=== PATIENT | female | born 1985 | race African-American/Black ===

== ENCOUNTER 2016-09-03 22:16 | Emergency (ER) | payer OTHER ==
[~2016-09-03] VITALS: Ht 175.3 cm; Wt 100.0 kg
[2016-09-03] MEDS ORDERED: 0.9% SODIUM CHLORIDE 5 ML NEB SOLUTION NEB ONE (22:54)
[2016-09-03] MEDS ORDERED: DEXAMETHASONE SOD PHOS 4 MG/ML 5 ML VIAL IM ONE (23:00)
[2016-09-03] MEDS ORDERED: ALBUTEROL SULFATE HFA 90 MCG/PUFF 8 GM INHALER IH ONE (23:00)
[2016-09-03] MEDS ORDERED: ALBUTEROL SULFATE 2.5 MG/0.5 ML NEB SOLUTION NEB ONE (23:00)
[2016-09-03 23:36] VITALS: BP 132/81
== END 2016-09-03 23:56 | disposition home or self-care (01) ==
LOC: EMS 22:17
DX: J98.01 Acute bronchospasm (principal); J06.9 Acute upper respiratory infection, unspecified; J45.909 Unspecified asthma, uncomplicated; Z88.6 Allergy status to analgesic agent
CPT/HCPCS: 81025; 94644; 96372; 99285; J1100; J3535

== ENCOUNTER 2017-03-09 21:08 | Emergency (ER) | payer OTHER ==
[~2017-03-09] VITALS: Ht 177.8 cm; Wt 97.7 kg
[2017-03-09] MEDS ORDERED: BECL8.7A6 IH (21:22)
[2017-03-09] MEDS ORDERED: AUD NEB (21:22)
[2017-03-09] MEDS ORDERED: ADV100 IH (21:26)
[2017-03-09] MEDS ORDERED: ALBUTEROL SULFATE HFA 90 MCG/PUFF 8 GM INHALER IH ONE (21:30)
[2017-03-09 21:58] VITALS: BP 142/89
== END 2017-03-09 22:07 | disposition home or self-care (01) ==
LOC: EMS 21:09
DX: J45.901 Unspecified asthma with (acute) exacerbation (principal)
CPT/HCPCS: 94640; 99283; J3535

== ENCOUNTER 2017-04-11 15:49 | Emergency (ER) | payer OTHER ==
[~2017-04-11] VITALS: Ht 177.8 cm; Wt 63.6 kg
[~2017-04-11 15:49] MED LIST: AUD NEB
[2017-04-11] MEDS ORDERED: LIDOCAINE HCL 1% 10 ML VIAL INJ ONE (16:30)
[2017-04-11] MEDS ORDERED: PERTUSS(ACELL),DIPH,TET VAC/PF 0.5 ML VIAL IM ONE (16:30)
[2017-04-11] MEDS ORDERED: BACITRACIN 0.9 GM PACKET OINTMENT TP ONE (16:30)
[2017-04-11] MEDS ORDERED: LIDOCAINE HCL 2%/EPI 1:200,000/PF 10 ML VIAL INJ ONE (17:00)
[2017-04-11 17:32] VITALS: BP 118/52
== END 2017-04-11 17:54 | disposition short-term general hospital (02) ==
LOC: EMS 15:51
DX: S61.412A Laceration without foreign body of left hand, initial encounter (principal); S81.012A Laceration without foreign body, left knee, initial encounter; J45.909 Unspecified asthma, uncomplicated; Z88.6 Allergy status to analgesic agent; W25.XXXA Contact with sharp glass, initial encounter; Y93.89 Activity, other specified; Y92.89 Other specified places as the place of occurrence of the external cause; Y99.8 Other external cause status
CPT/HCPCS: 73130; 90471; 90715; 99285; J3490

== ENCOUNTER 2017-05-05 10:19 | Emergency (ER) | payer OTHER ==
[~2017-05-05] VITALS: Ht 177.8 cm; Wt 95.4 kg
[2017-05-05 10:35] VITALS: BP 133/79
[2017-05-05] MEDS ORDERED: HYDROCODONE/ACETAMINOPHEN 5-325 MG TABLET PO ONE (10:45)
== END 2017-05-05 11:02 | disposition home or self-care (01) ==
LOC: EMS 10:23
DX: S61.412D Laceration without foreign body of left hand, subsequent encounter (principal); J45.909 Unspecified asthma, uncomplicated; Z88.6 Allergy status to analgesic agent; X58.XXXD Exposure to other specified factors, subsequent encounter; Y92.89 Other specified places as the place of occurrence of the external cause; Y99.8 Other external cause status
CPT/HCPCS: 99283

== ENCOUNTER 2017-07-19 23:08 | Emergency (ER) | payer OTHER ==
[~2017-07-19] VITALS: Ht 175.3 cm; Wt 88.6 kg
[2017-07-19] MEDS ORDERED: RISP2 PO (23:21)
[2017-07-20] MEDS ORDERED: SODIUM CHLORIDE 0.9% 1,000 ML IV ONE (00:15)
[2017-07-20 00:47] LABS: BASOPHILS # (AUTO) 0.09 K/uL (0.00-0.20); BASOPHILS % (AUTO) 1.5 % (0.0-2.0); EOSINOPHILS # (AUTO) 0.22 K/uL (0.00-0.70); EOSINOPHILS % (AUTO) 3.71 % (1.0-6.0); HEMATOCRIT 34.1 % (36-46); HEMOGLOBIN 10.4 g/dL (12.0-16.0); LYMPHOCYTES # (AUTO) 1.4 K/uL (1.0-4.8); LYMPHOCYTES % (AUTO) 23.6 % (22.0-44.0); MEAN CORPUSCULAR HEMOGLOBIN 21.4 pg (26.0-34.0); MEAN CORPUSCULAR HGB CONC 30.6 G/dL (31.0-37.0); MEAN CORPUSCULAR VOLUME 70 fL (80-100); MONOCYTES # (AUTO) 0.4 K/uL (0.1-1.0); MONOCYTES % (AUTO) 7.4 % (2.0-9.0); NEUTROPHILS # (AUTO) 3.9 K/uL (1.8-7.7); NEUTROPHILS % (AUTO) 63.8 % (40.0-70.0); PLATELET COUNT (AUTO) 326 K/uL (150-450); RED BLOOD CELL COUNT(AUTO) 4.87 MIL/uL (4.00-5.20); RED CELL DISTRIBUTION WIDTH 19.2 % (11.5-14.5)
[2017-07-20 01:01] LABS: ANION GAP 10 mmol/L (8-16); CALCIUM, TOTAL 9.6 mg/dL (8.8-10.5); CARBON DIOXIDE 26 mmol/L (22-29); CHLORIDE 101 mmol/L (98-107); CREATININE 0.62 mg/dL (0.60-1.30); GLOMERULAR FILTR. RATE CALC > 60 mL/min (>60); POTASSIUM 5.4 mmol/L (3.5-5.1); SODIUM SERUM 137 mmol/L (136-145); UREA NITROGEN, BLOOD 7 mg/dL (7-18)
[2017-07-20 01:17] LABS: ALANINE AMINOTRANSFERASE 17 U/L (12-78); ALBUMIN 4.3 g/dL (3.4-5.0); ASPARTATE AMINOTRANSFERASE 35 U/L (15-37); BILIRUBIN,TOTAL 0.6 mg/dL (0.1-1.0); THYROID STIMULATING HORMONE 1.93 uIU/mL (0.36-3.74); TOTAL PROTEIN, SERUM 8.5 g/dL (6.4-8.2)
[2017-07-20 01:31] LABS: RBC MORPHOLOGY COMMENT ABNORMAL RBC MORPH
[2017-07-20 03:01] VITALS: BP 122/81
== END 2017-07-20 03:51 | disposition home or self-care (01) ==
LOC: EMS 23:09
DX: R00.2 Palpitations (principal); R35.8 Other polyuria; J45.909 Unspecified asthma, uncomplicated; E11.9 Type 2 diabetes mellitus without complications; Z88.6 Allergy status to analgesic agent
CPT/HCPCS: 36415; 71010; 80053; 80307; 84439; 84443; 84484; 84703; 85025; 93005; 96360; 96361; 99285; J7030

== ENCOUNTER 2017-10-15 09:36 | Emergency (ER) | payer OTHER ==
[~2017-10-15] VITALS: Ht 172.7 cm; Wt 84.1 kg
[~2017-10-15 09:36] MED LIST changes: +RISP2 PO
[2017-10-15 09:58] LABS: GLUCOSE,POINT OF CARE 104 MG/DL (70-110)
[2017-10-15] MEDS ORDERED: LORazepam 2 MG/ML VIAL IVP ONE ×2 (10:15→12:45)
[2017-10-15 10:58] LABS: B-TYPE NATRIURETIC PEPTIDE 12 pg/mL (0-100); BASOPHILS % (AUTO) 0.6 % (0.0-2.0); EOSINOPHILS % (AUTO) 2.1 % (1.0-6.0); HEMATOCRIT 33.5 % (36-46); HEMOGLOBIN 10.4 g/dL (12.0-16.0); LYMPHOCYTES # (AUTO) 1.5 K/uL (1.0-4.8); LYMPHOCYTES % (AUTO) 16.8 % (22.0-44.0); MEAN CORPUSCULAR HEMOGLOBIN 21.8 pg (26.0-34.0); MEAN CORPUSCULAR HGB CONC 31.1 G/dL (31.0-37.0); MEAN CORPUSCULAR VOLUME 70 fL (80-100); MONOCYTES # (AUTO) 0.6 K/uL (0.1-1.0); MONOCYTES % (AUTO) 6.3 % (2.0-9.0); NEUTROPHILS # (AUTO) 6.6 K/uL (1.8-7.7); NEUTROPHILS % (AUTO) 74.2 % (40.0-70.0); PLATELET COUNT (AUTO) 374 K/uL (150-450); RED BLOOD CELL COUNT(AUTO) 4.78 MIL/uL (4.00-5.20); RED CELL DISTRIBUTION WIDTH 18.8 % (11.5-14.5)
[2017-10-15 11:15] LABS: ALANINE AMINOTRANSFERASE 21 U/L (12-78); ALBUMIN 4.5 g/dL (3.4-5.0); ALKALINE PHOSPHATASE 97 U/L (46-116); ANION GAP 13 mmol/L (8-16); ASPARTATE AMINOTRANSFERASE 25 U/L (15-37); BILIRUBIN,TOTAL 0.8 mg/dL (0.1-1.0); CALCIUM, TOTAL 9.4 mg/dL (8.8-10.5); CARBON DIOXIDE 24 mmol/L (22-29); CHLORIDE 101 mmol/L (98-107); CREATINE KINASE MB 3.2 ng/mL (0-5); CREATINE KINASE, TOTAL 448 U/L (26-192); CREATININE 0.82 mg/dL (0.60-1.30); GLOMERULAR FILTR. RATE CALC > 60 mL/min (>60); GLUCOSE,RANDOM 114 mg/dL (70-110); SODIUM SERUM 138 mmol/L (136-145); TOTAL PROTEIN, SERUM 8.9 g/dL (6.4-8.2); UREA NITROGEN, BLOOD 10 mg/dL (7-18)
[2017-10-15] MEDS ORDERED: POTASSIUM CHLORIDE 20 MEQ ER TABLET PO ONE (11:30)
[2017-10-15 12:43] VITALS: BP 140/78
== END 2017-10-15 13:19 | disposition home or self-care (01) ==
LOC: EMS 09:37
DX: F19.129 Other psychoactive substance abuse with intoxication, unspecified (principal); F15.90 Other stimulant use, unspecified, uncomplicated; E87.6 Hypokalemia; D64.9 Anemia, unspecified; J45.909 Unspecified asthma, uncomplicated; E11.9 Type 2 diabetes mellitus without complications; F32.9 Major depressive disorder, single episode, unspecified; Z88.5 Allergy status to narcotic agent; Z79.899 Other long term (current) drug therapy
CPT/HCPCS: 36415; 71045; 80053; 82550; 82553; 82962; 83880; 84484; 85025; 93005; 96374; 96376; 99285; G0480; J2060

== ENCOUNTER 2019-03-15 12:22 | Emergency (ER) | payer OTHER ==
[~2019-03-15] VITALS: Ht 172.7 cm; Wt 81.8 kg
[2019-03-15 12:25] VITALS: BP 121/75
== END 2019-03-15 12:40 | disposition left against medical advice (07) ==
LOC: EMS 12:22
DX: R06.02 Shortness of breath (principal); J45.909 Unspecified asthma, uncomplicated; F32.9 Major depressive disorder, single episode, unspecified; E11.9 Type 2 diabetes mellitus without complications; F17.210 Nicotine dependence, cigarettes, uncomplicated; Z53.21 Procedure and treatment not carried out due to patient leaving prior to being seen by health care provider

== ENCOUNTER 2019-04-19 02:46 | Emergency (ER) | payer OTHER | END 2019-04-19 03:06 | disposition left against medical advice (07) | LOC: EMS 02:48 | DX: J45.901 Unspecified asthma with (acute) exacerbation (principal); F32.9 Major depressive disorder, single episode, unspecified; E11.9 Type 2 diabetes mellitus without complications; Z88.6 Allergy status to analgesic agent ==

== ENCOUNTER 2019-07-05 09:26 | Emergency (ER) | payer OTHER ==
[~2019-07-05] VITALS: Ht 175.3 cm; Wt 85.8 kg
[2019-07-05] MEDS ORDERED: ARIP2 PO (09:47)
[2019-07-05 10:15] LABS: BASOPHILS % (AUTO) 1.1 % (0.0-2.0); EOSINOPHILS % (AUTO) 7.9 % (1.0-6.0); HEMATOCRIT 35.3 % (36-46); HEMOGLOBIN 10.9 g/dL (12.0-16.0); LYMPHOCYTES # (AUTO) 1.9 K/uL (1.0-4.8); LYMPHOCYTES % (AUTO) 25.3 % (22.0-44.0); MEAN CORPUSCULAR HEMOGLOBIN 23.4 pg (26.0-34.0); MEAN CORPUSCULAR HGB CONC 30.8 G/dL (31.0-37.0); MEAN CORPUSCULAR VOLUME 76 fL (80-100); MONOCYTES # (AUTO) 0.5 K/uL (0.1-1.0); MONOCYTES % (AUTO) 6.8 % (2.0-9.0); NEUTROPHILS # (AUTO) 4.5 K/uL (1.8-7.7); NEUTROPHILS % (AUTO) 58.9 % (40.0-70.0); PLATELET COUNT (AUTO) 453 K/uL (150-450); RED BLOOD CELL COUNT(AUTO) 4.64 MIL/uL (4.00-5.20); RED CELL DISTRIBUTION WIDTH 15.5 % (11.5-14.5)
[2019-07-05] MEDS ORDERED: MAGNESIUM SULFATE 2 GM/WATER 50 ML IV ONE (10:15)
[2019-07-05] MEDS ORDERED: MethylPREDNISolone SOD SUCC 125 MG/2 ML VIAL IVP ONE (10:15)
[2019-07-05] MEDS ORDERED: SODIUM CHLORIDE 0.9% 1,000 ML IV ONE (10:15)
[2019-07-05] MEDS ORDERED: AMPICILLIN SODIUM/SULBACTAM NA 3 GM in SODIUM CHLORIDE 0.9% 100 ML IV ONE (10:30)
[2019-07-05] MEDS ORDERED: SODIUM CHLORIDE 0.9% 100 ML ONE (10:30)
[2019-07-05] MEDS ORDERED: IOVERSOL 350 MG/ML 100 ML VIAL ONE (10:30)
[2019-07-05 10:42] LABS: ABG A-A DIFF O2 38.4 mmHg (10-20.0); ABG CARBOXYHEMOGLOBIN 0.2 % (0.0-1.5); ABG HCO3 22.3 mmol/L (22.0-26.0); ABG METHEMOGLOBIN 0.3 % (0.0-1.5); ABG OXYGEN CONTENT 14.3 mL/dL (15.0-23.0); ABG OXYGEN SATURATION 93.4 % (95.0-98.0); ABG OXYHEMOGLOBIN 92.9 % (94.0-100.0); ABG PCO2 34 mmHg (35-45); ABG PH 7.416 (7.350-7.450); ABG TOTAL HEMOGLOBIN 10.9 G/dL (12.0-18.0); O2 DEVICE,BLOOD GAS ROOM AIR (ROOM AIR); PO2, ARTERIAL BG 70.5 mmHg (92.0-100.0); SITE, BLOOD GAS RT RADIAL; SOURCE, BLOOD GAS ARTERIAL
[2019-07-05 11:01] LABS: ALANINE AMINOTRANSFERASE 15 U/L (12-78); ALBUMIN 3.5 g/dL (3.4-5.0); ALKALINE PHOSPHATASE 79 U/L (46-116); ANION GAP 9 mmol/L (8-16); ASPARTATE AMINOTRANSFERASE 16 U/L (15-37); BILIRUBIN,TOTAL 0.3 mg/dL (0.1-1.0); CALCIUM, TOTAL 8.3 mg/dL (8.8-10.5); CARBON DIOXIDE 28 mmol/L (22-29); CHLORIDE 104 mmol/L (98-107); CREATININE 0.86 mg/dL (0.60-1.30); GLOMERULAR FILTR. RATE CALC > 60 mL/min (>60); GLUCOSE,RANDOM 148 mg/dL (70-110); HCG,QUANTITATIVE 1 mIU/mL (0-6); POTASSIUM 3.7 mmol/L (3.5-5.1); SODIUM SERUM 141 mmol/L (136-145); TOTAL PROTEIN, SERUM 7.6 g/dL (6.4-8.2)
[2019-07-05 11:13] LABS: UREA NITROGEN, BLOOD 7 mg/dL (7-18)
[2019-07-05] MEDS ORDERED: IPRATROPIUM BROMIDE 0.5 MG/2.5 ML NEB SOLUTION NEB ONE (11:15)
[2019-07-05] MEDS ORDERED: ALBUTEROL SULFATE 2.5 MG/0.5 ML NEB SOLUTION NEB ONE (11:15)
[2019-07-05 11:39] LABS: INFLUENZA TYPE A NEGATIVE FOR TYPE A (NEGATIVE); INFLUENZA TYPE B NEGATIVE FOR TYPE B (NEGATIVE)
[2019-07-05] MEDS ORDERED: ALBUTEROL SULFATE HFA 90 MCG/PUFF 8 GM INHALER IH ONE (13:45)
[2019-07-05 14:30] VITALS: BP 118/95
== END 2019-07-05 14:43 | disposition home or self-care (01) ==
LOC: EMS 09:29
DX: J45.901 Unspecified asthma with (acute) exacerbation (principal); K04.7 Periapical abscess without sinus; E11.9 Type 2 diabetes mellitus without complications; F32.9 Major depressive disorder, single episode, unspecified; Z88.6 Allergy status to analgesic agent; Z79.899 Other long term (current) drug therapy
CPT/HCPCS: 36415; 36600; 70487; 71045; 80053; 82805; 84702; 85025; 87804; 94640; 96365; 96366; 96367; 96375; 99284; J0295; J2930; J3475; J7030; J7050; Q9967; 94060; J3535

== ENCOUNTER 2019-10-21 19:42 | Emergency (ER) | payer OTHER ==
[~2019-10-21 19:42] MED LIST changes: +ARIP2 PO; -RISP2 PO
== END 2019-10-21 20:00 | disposition left against medical advice (07) ==
LOC: EMS 19:43
DX: R06.02 Shortness of breath (principal); Z53.21 Procedure and treatment not carried out due to patient leaving prior to being seen by health care provider

== ENCOUNTER 2019-10-22 10:22 | Emergency (ER) | payer OTHER ==
[~2019-10-22] VITALS: Ht 175.3 cm; Wt 90.9 kg
[2019-10-22 11:08] VITALS: BP 8/67
== END 2019-10-22 10:58 | disposition home or self-care (01) ==
LOC: EMS 10:24
DX: J45.901 Unspecified asthma with (acute) exacerbation (principal); E11.9 Type 2 diabetes mellitus without complications; Z88.6 Allergy status to analgesic agent; Z79.899 Other long term (current) drug therapy

== ENCOUNTER 2019-10-30 12:38 | Emergency (ER) | payer OTHER ==
[~2019-10-30] VITALS: Ht 172.7 cm; Wt 86.4 kg
[2019-10-30 13:25] VITALS: BP 124/76
[2019-10-30 13:50] LABS: INFLUENZA TYPE A NEGATIVE FOR TYPE A (NEGATIVE); INFLUENZA TYPE B NEGATIVE FOR TYPE B (NEGATIVE)
== END 2019-10-30 13:37 | disposition left against medical advice (07) ==
LOC: EMS 12:38
DX: R06.02 Shortness of breath (principal); Z53.21 Procedure and treatment not carried out due to patient leaving prior to being seen by health care provider
CPT/HCPCS: 87804

== ENCOUNTER 2019-10-31 17:05 | Emergency (ER) | payer OTHER ==
[~2019-10-31] VITALS: Ht 172.7 cm; Wt 86.4 kg
[2019-10-31 17:17] VITALS: BP 124/85
== END 2019-10-31 18:13 | disposition home or self-care (01) ==
LOC: EMS 17:05
DX: J45.901 Unspecified asthma with (acute) exacerbation (principal); F32.9 Major depressive disorder, single episode, unspecified; E11.9 Type 2 diabetes mellitus without complications; Z88.6 Allergy status to analgesic agent

== ENCOUNTER 2019-11-17 21:51 | Emergency (ER) | payer OTHER ==
[~2019-11-17] VITALS: Ht 167.6 cm; Wt 72.7 kg
[2019-11-17 22:56] LABS: BASOPHILS % (AUTO) 1.2 % (0.0-2.0); EOSINOPHILS % (AUTO) 10.2 % (1.0-6.0); HEMATOCRIT 35.2 % (36-46); HEMOGLOBIN 10.8 g/dL (12.0-16.0); LYMPHOCYTES % (AUTO) 30.6 % (22.0-44.0); MEAN CORPUSCULAR HEMOGLOBIN 22.8 pg (26.0-34.0); MEAN CORPUSCULAR HGB CONC 30.7 G/dL (31.0-37.0); MEAN CORPUSCULAR VOLUME 74 fL (80-100); MONOCYTES # (AUTO) 0.5 K/uL (0.1-1.0); MONOCYTES % (AUTO) 7.2 % (2.0-9.0); NEUTROPHILS # (AUTO) 3.3 K/uL (1.8-7.7); NEUTROPHILS % (AUTO) 50.8 % (40.0-70.0); PLATELET COUNT (AUTO) 439 K/uL (150-450); RED BLOOD CELL COUNT(AUTO) 4.74 MIL/uL (4.00-5.20); RED CELL DISTRIBUTION WIDTH 17.7 % (11.5-14.5)
[2019-11-17] MEDS ORDERED: IPRATROPIUM BROMIDE 0.5 MG/2.5 ML NEB SOLUTION NEB ONE (23:00)
[2019-11-17] MEDS ORDERED: ALBUTEROL SULFATE 5 MG/ML 20 ML NEB SOLN [BULK] NEB ONE (23:00)
[2019-11-17] MEDS ORDERED: PredniSONE 20 MG TABLET PO ONE (23:00)
[2019-11-17 23:30] LABS: ALANINE AMINOTRANSFERASE 28 U/L (12-78); ALBUMIN 4.4 g/dL (3.4-5.0); ALKALINE PHOSPHATASE 82 U/L (46-116); ANION GAP 8 mmol/L (8-16); ASPARTATE AMINOTRANSFERASE 37 U/L (15-37); BILIRUBIN,TOTAL 0.4 mg/dL (0.1-1.0); CARBON DIOXIDE 28 mmol/L (22-29); CHLORIDE 103 mmol/L (98-107); CREATININE 0.85 mg/dL (0.60-1.30); GLOMERULAR FILTR. RATE CALC > 60 mL/min (>60); GLUCOSE,RANDOM 114 mg/dL (70-110); HCG,QUANTITATIVE < 1 mIU/mL (0-6); SODIUM SERUM 139 mmol/L (136-145); TOTAL PROTEIN, SERUM 8.6 g/dL (6.4-8.2); UREA NITROGEN, BLOOD 6 mg/dL (7-18)
[2019-11-17] MEDS ORDERED: 0.9% SODIUM CHLORIDE 5 ML NEB SOLUTION NEB ONE (23:49)
[2019-11-18 00:48] VITALS: BP 129/93
== END 2019-11-18 00:54 | disposition home or self-care (01) ==
LOC: EMS 21:53
DX: J45.901 Unspecified asthma with (acute) exacerbation (principal); D64.9 Anemia, unspecified; E11.9 Type 2 diabetes mellitus without complications; F32.9 Major depressive disorder, single episode, unspecified; Z88.6 Allergy status to analgesic agent
CPT/HCPCS: 36415; 71045; 80053; 84702; 85025; 94640; 99285; J7512

== ENCOUNTER 2020-01-06 14:27 | Emergency (ER) | payer OTHER ==
[~2020-01-06] VITALS: Ht 172.7 cm; Wt 90.9 kg
[2020-01-06] MEDS ORDERED: SODIUM CHLORIDE 0.9% 1,000 ML IV ONE (15:00)
[2020-01-06] MEDS ORDERED: ALBUTEROL SULFATE HFA 90 MCG/PUFF 8 GM INHALER IH ONE (15:00)
[2020-01-06 15:25] LABS: HEMATOCRIT 34.7 % (36-46); HEMOGLOBIN 10.6 g/dL (12.0-16.0); MEAN CORPUSCULAR HEMOGLOBIN 22.8 pg (26.0-34.0); MEAN CORPUSCULAR HGB CONC 30.6 G/dL (31.0-37.0); MEAN CORPUSCULAR VOLUME 75 fL (80-100); PLATELET COUNT (AUTO) 396 K/uL (150-450); RED BLOOD CELL COUNT(AUTO) 4.65 MIL/uL (4.00-5.20); RED CELL DISTRIBUTION WIDTH 17.3 % (11.5-14.5)
[2020-01-06 15:38] LABS: ANION GAP 12 mmol/L (8-16); CARBON DIOXIDE 24 mmol/L (22-29); CHLORIDE 105 mmol/L (98-107); CREATININE 0.78 mg/dL (0.60-1.30); GLOMERULAR FILTR. RATE CALC > 60 mL/min (>60); GLUCOSE,RANDOM 100 mg/dL (70-110); SODIUM SERUM 141 mmol/L (136-145); UREA NITROGEN, BLOOD 9 mg/dL (7-18)
[2020-01-06 15:44] LABS: D-DIMER 0.74 mg/L FEU (0.00-0.50); PROTHROMBIN TIME 10.7 SEC (9.4-11.6)
[2020-01-06 16:00] LABS: B-TYPE NATRIURETIC PEPTIDE < 5 pg/mL (0-100)
[2020-01-06 16:03] LABS: ALANINE AMINOTRANSFERASE 23 U/L (12-78); ALBUMIN 4.1 g/dL (3.4-5.0); ALKALINE PHOSPHATASE 77 U/L (46-116); ASPARTATE AMINOTRANSFERASE 39 U/L (15-37); BILIRUBIN,TOTAL 0.5 mg/dL (0.1-1.0); FREE T4 (FREE THYROXINE) 0.96 ng/dL (0.76-1.46); HCG,QUANTITATIVE < 1 mIU/mL (0-6); THYROID STIMULATING HORMONE 2.17 uIU/mL (0.36-3.74); TOTAL PROTEIN, SERUM 8.3 g/dL (6.4-8.2)
[2020-01-06 16:09] LABS: CREATINE KINASE, TOTAL ONLY 1106 U/L (26-192)
[2020-01-06 16:11] LABS: APPEARANCE,URINE CLOUDY (CLEAR); BILIRUBIN,URINE NEGATIVE (NEGATIVE); GLUCOSE, URINE (UA) NEGATIVE (NEGATIVE); KETONES,URINE TRACE mg/dL (NEGATIVE); LEUKOCYTE ESTERASE ,URINE MODERATE (NEGATIVE); NITRATE,URINE NEGATIVE (NEGATIVE); OCCULT BLOOD,URINE NEGATIVE (NEGATIVE); PROTEIN,URINE NEGATIVE (NEGATIVE); UROBILINOGEN,URINE 0.2 mg/dL (<=1.0)
[2020-01-06 16:18] LABS: AMPHET/METH SCREEN,URINE NEGATIVE (NEGATIVE); BARBITURATE SCREEN, URINE NEGATIVE (NEGATIVE); BENZODIAZEPINES SCREEN,URINE NEGATIVE (NEGATIVE); CANNABINOID SCREEN,URINE NEGATIVE (NEGATIVE); COCAINE SCREEN,URINE NEGATIVE (NEGATIVE); METHADONE SCREEN, URINE NEGATIVE (NEGATIVE); OPIATE SCREEN,URINE NEGATIVE (NEGATIVE)
[2020-01-06] MEDS ORDERED: IOVERSOL 350 MG/ML 100 ML VIAL ONE (16:19)
[2020-01-06] MEDS ORDERED: SODIUM CHLORIDE 0.9% 0 ML ONE (16:19)
[2020-01-06 16:22] LABS: PHENCYCLIDINE SCREEN,URINE NEGATIVE (NEGATIVE)
[2020-01-06 16:26] LABS: BAND NEUTROPHILS % (MANUAL) 0 % (0-5)
[2020-01-06 16:28] LABS: BASOPHILS % (MANUAL) 1 % (0-2); EOSINOPHILS % (MANUAL) 18 % (1-6); LYMPHOCYTES % (MANUAL) 22 % (22-44); MONOCYTES % (MANUAL) 5 % (2-9); PLATELET MORPHOLOGY COMMENT GIANT PLTS PRESENT; SEGMENTED NEUTROPHILS % 54 % (40-70)
[2020-01-06 16:43] LABS: BACTERIA,URINE Few /HPF (None Seen); RBC,URINE 0-2 /HPF (0-2); SQUAMOUS EPITHELIAL CELL,UR Many /LPF (None Seen)
[2020-01-06 17:22] VITALS: BP 136/108
== END 2020-01-06 17:50 | disposition left against medical advice (07) ==
LOC: EMS 14:30
DX: J45.909 Unspecified asthma, uncomplicated (principal); R79.89 Other specified abnormal findings of blood chemistry; F32.9 Major depressive disorder, single episode, unspecified; E11.9 Type 2 diabetes mellitus without complications; F19.90 Other psychoactive substance use, unspecified, uncomplicated; Z88.6 Allergy status to analgesic agent
CPT/HCPCS: 36415; 71045; 80053; 80307; 81001; 81025; 82550; 83880; 84439; 84443; 84484; 84702; 85025; 85379; 85610; 85730; 87086; 93005; 94640; 99285; G0480; J7030; J3535; J7050

== ENCOUNTER 2020-01-10 15:59 | Emergency (ER) | payer OTHER ==
[~2020-01-10] VITALS: Ht 172.7 cm; Wt 90.9 kg
[2020-01-10] MEDS ORDERED: ALBUTEROL SULFATE HFA 90 MCG/PUFF 8 GM INHALER IH ONE (17:15)
[2020-01-10 17:19] LABS: BASOPHILS % (AUTO) 0.1 % (0.0-2.0); EOSINOPHILS % (AUTO) 0 % (1.0-6.0); HEMATOCRIT 30.1 % (36-46); LYMPHOCYTES # (AUTO) 0.4 K/uL (1.0-4.8); LYMPHOCYTES % (AUTO) 6.2 % (22.0-44.0); MEAN CORPUSCULAR HEMOGLOBIN 22.7 pg (26.0-34.0); MEAN CORPUSCULAR HGB CONC 30.1 G/dL (31.0-37.0); MEAN CORPUSCULAR VOLUME 75 fL (80-100); MONOCYTES # (AUTO) 0.2 K/uL (0.1-1.0); MONOCYTES % (AUTO) 2.9 % (2.0-9.0); NEUTROPHILS # (AUTO) 5.8 K/uL (1.8-7.7); PLATELET COUNT (AUTO) 324 K/uL (150-450); RED BLOOD CELL COUNT(AUTO) 3.99 MIL/uL (4.00-5.20); RED CELL DISTRIBUTION WIDTH 16.9 % (11.5-14.5)
[2020-01-10 17:26] LABS: NEUTROPHILS % (AUTO) 90.8 % (40.0-70.0)
[2020-01-10 17:35] LABS: ANION GAP 14 mmol/L (8-16); CALCIUM, TOTAL 8.7 mg/dL (8.8-10.5); CARBON DIOXIDE 21 mmol/L (22-29); CHLORIDE 106 mmol/L (98-107); CREATININE 0.95 mg/dL (0.60-1.30); GLOMERULAR FILTR. RATE CALC > 60 mL/min (>60); GLUCOSE,RANDOM 166 mg/dL (70-110); POTASSIUM 3.8 mmol/L (3.5-5.1); SODIUM SERUM 141 mmol/L (136-145); UREA NITROGEN, BLOOD 8 mg/dL (7-18)
[2020-01-10 17:41] LABS: ALANINE AMINOTRANSFERASE 26 U/L (12-78); ALBUMIN 3.6 g/dL (3.4-5.0); ALKALINE PHOSPHATASE 68 U/L (46-116); ASPARTATE AMINOTRANSFERASE 31 U/L (15-37); BILIRUBIN,TOTAL 0.4 mg/dL (0.1-1.0); TOTAL PROTEIN, SERUM 7.3 g/dL (6.4-8.2)
[2020-01-10 18:38] LABS: LACTIC ACID 4.1 mmol/L (0.4-2.0)
[2020-01-10 18:42] VITALS: BP 125/74
[2020-01-10 20:23] LABS: FREE T4 (FREE THYROXINE) 0.81 ng/dL (0.76-1.46); THYROID STIMULATING HORMONE 0.84 uIU/mL (0.36-3.74)
== END 2020-01-10 18:41 | disposition left against medical advice (07) ==
LOC: EMS 16:02
DX: R06.02 Shortness of breath (principal); R45.1 Restlessness and agitation; J45.901 Unspecified asthma with (acute) exacerbation; F32.9 Major depressive disorder, single episode, unspecified; E11.9 Type 2 diabetes mellitus without complications; F19.90 Other psychoactive substance use, unspecified, uncomplicated; Z88.6 Allergy status to analgesic agent
CPT/HCPCS: 83605; 84439; 84443; 93005; 94640; J3535

== ENCOUNTER 2020-01-30 17:11 | Emergency (ER) | payer OTHER ==
[~2020-01-30] VITALS: Ht 172.7 cm; Wt 90.9 kg
[2020-01-30] MEDS ORDERED: ALBUTEROL SULFATE 5 MG/ML 20 ML NEB SOLN [BULK] NEB ONE (17:15)
[2020-01-30] MEDS ORDERED: MethylPREDNISolone SOD SUCC 125 MG/2 ML VIAL IVP ONE (17:15)
[2020-01-30] MEDS ORDERED: FAMOTIDINE 10 MG/ML 2 ML VIAL IVP ONE (17:15)
[2020-01-30] MEDS ORDERED: MAGNESIUM SULFATE 2 GM/WATER 50 ML IV ONE (17:15)
[2020-01-30] MEDS ORDERED: IPRATROPIUM BROMIDE 0.5 MG/2.5 ML NEB SOLUTION NEB ONE (17:15)
[2020-01-30] MEDS ORDERED: LORazepam 2 MG/ML VIAL ONE (17:22)
[2020-01-30 17:57] LABS: BASOPHILS % (AUTO) 2.8 % (0.0-2.0); EOSINOPHILS % (AUTO) 6.6 % (1.0-6.0); HEMATOCRIT 31.4 % (36-46); LYMPHOCYTES # (AUTO) 4.2 K/uL (1.0-4.8); LYMPHOCYTES % (AUTO) 40.9 % (22.0-44.0); MEAN CORPUSCULAR HEMOGLOBIN 23.7 pg (26.0-34.0); MEAN CORPUSCULAR HGB CONC 31.8 G/dL (31.0-37.0); MEAN CORPUSCULAR VOLUME 75 fL (80-100); MONOCYTES # (AUTO) 0.7 K/uL (0.1-1.0); MONOCYTES % (AUTO) 7.1 % (2.0-9.0); NEUTROPHILS # (AUTO) 4.4 K/uL (1.8-7.7); NEUTROPHILS % (AUTO) 42.6 % (40.0-70.0); PLATELET COUNT (AUTO) 463 K/uL (150-450); RED BLOOD CELL COUNT(AUTO) 4.21 MIL/uL (4.00-5.20); RED CELL DISTRIBUTION WIDTH 16.3 % (11.5-14.5)
[2020-01-30 18:04] LABS: ANION GAP 13 mmol/L (8-16); CALCIUM, TOTAL 8.4 mg/dL (8.8-10.5); CARBON DIOXIDE 24 mmol/L (22-29); CHLORIDE 105 mmol/L (98-107); CREATININE 1.02 mg/dL (0.60-1.30); GLOMERULAR FILTR. RATE CALC > 60 mL/min (>60); GLUCOSE,RANDOM 185 mg/dL (70-110); POTASSIUM 3.2 mmol/L (3.5-5.1); SODIUM SERUM 142 mmol/L (136-145); UREA NITROGEN, BLOOD 13 mg/dL (7-18)
[2020-01-30 18:09] LABS: AMMONIA 37 umol/L (11-32); TROPONIN I < 0.02 ng/mL (0.00-0.05)
[2020-01-30 18:16] LABS: ALANINE AMINOTRANSFERASE 24 U/L (12-78); ALBUMIN 3.8 g/dL (3.4-5.0); ALKALINE PHOSPHATASE 73 U/L (46-116); ASPARTATE AMINOTRANSFERASE 25 U/L (15-37); BILIRUBIN,TOTAL 0.3 mg/dL (0.1-1.0); HCG,QUANTITATIVE 1 mIU/mL (0-6); THYROID STIMULATING HORMONE 3.19 uIU/mL (0.36-3.74); TOTAL PROTEIN, SERUM 7.7 g/dL (6.4-8.2)
[2020-01-30 18:38] LABS: ACETAMINOPHEN < 2 mcg/mL (10-30)
[2020-01-30 18:54] LABS: SALICYLATE 0.5 mg/dL (2.8-20.0)
[2020-01-30 19:21] VITALS: BP 148/130
[2020-01-30 20:01] LABS: AMPHET/METH SCREEN,URINE NEGATIVE (NEGATIVE); BARBITURATE SCREEN, URINE NEGATIVE (NEGATIVE); BENZODIAZEPINES SCREEN,URINE NEGATIVE (NEGATIVE); CANNABINOID SCREEN,URINE NEGATIVE (NEGATIVE); COCAINE SCREEN,URINE NEGATIVE (NEGATIVE); METHADONE SCREEN, URINE NEGATIVE (NEGATIVE); OPIATE SCREEN,URINE NEGATIVE (NEGATIVE)
[2020-01-30 20:10] LABS: PHENCYCLIDINE SCREEN,URINE NEGATIVE (NEGATIVE)
[2020-01-30 20:14] LABS: APPEARANCE,URINE CLEAR (CLEAR); BILIRUBIN,URINE NEGATIVE (NEGATIVE); GLUCOSE, URINE (UA) NEGATIVE (NEGATIVE); KETONES,URINE NEGATIVE (NEGATIVE); LEUKOCYTE ESTERASE ,URINE SMALL (NEGATIVE); NITRATE,URINE NEGATIVE (NEGATIVE); OCCULT BLOOD,URINE NEGATIVE (NEGATIVE); PH,URINE 5.5 (5.0-8.0); PROTEIN,URINE POS 1+ (NEGATIVE); UROBILINOGEN,URINE 0.2 mg/dL (<=1.0)
[2020-01-30 20:49] LABS: RBC,URINE None Seen /HPF (0-2)
[2020-01-30 20:50] LABS: SQUAMOUS EPITHELIAL CELL,UR Moderate /LPF (None Seen); WBC,URINE 0-2 /HPF (0-5)
[2020-01-30 20:51] LABS: BACTERIA,URINE Moderate /HPF (None Seen)
== END 2020-01-30 19:21 | disposition left against medical advice (07) ==
LOC: EMS 17:11
DX: T78.40XA Allergy, unspecified, initial encounter (principal); J45.901 Unspecified asthma with (acute) exacerbation; E11.9 Type 2 diabetes mellitus without complications; J45.909 Unspecified asthma, uncomplicated; F15.90 Other stimulant use, unspecified, uncomplicated; X58.XXXA Exposure to other specified factors, initial encounter
CPT/HCPCS: 36415; 71045; 80053; 80307; 81001; 82140; 82948; 84443; 84484; 84702; 85025; 87086; 93005; 94644; 96365; 96366; 96375; 99291; G0481; J2060; J3475; 51701; G0480

== ENCOUNTER 2020-02-19 23:38 | Emergency (ER) | payer SELFPAY ==
[~2020-02-19] VITALS: Ht 180.3 cm; Wt 97.7 kg
[2020-02-19] MEDS ORDERED: BECL10.62 IH (23:51)
[2020-02-19] MEDS ORDERED: ALBU8.5H8 IH (23:51)
[2020-02-20] MEDS ORDERED: ALBUTEROL SULFATE HFA 90 MCG/PUFF 8 GM INHALER IH ONE
[2020-02-20] MEDS ORDERED: DEXAMETHASONE 4 MG TABLET PO ONE (00:15)
[2020-02-20 00:45] VITALS: BP 135/78
== END 2020-02-20 00:50 | disposition home or self-care (01) ==
LOC: EMS 23:38
DX: J45.901 Unspecified asthma with (acute) exacerbation (principal); F15.90 Other stimulant use, unspecified, uncomplicated; F32.9 Major depressive disorder, single episode, unspecified; Z88.6 Allergy status to analgesic agent; Z79.899 Other long term (current) drug therapy
CPT/HCPCS: 94640; 99283; J8540; J3535

== ENCOUNTER 2020-02-20 23:28 | Emergency (ER) | payer SELFPAY ==
[~2020-02-20] VITALS: Ht 172.7 cm; Wt 97.7 kg
[~2020-02-20 23:28] MED LIST changes: +ALBU8.5H8 IH; +BECL10.62 IH
[2020-02-21 00:24] LABS: BASOPHILS % (AUTO) 0.3 % (0.0-2.0); EOSINOPHILS % (AUTO) 0.1 % (1.0-6.0); HEMATOCRIT 31.6 % (36-46); HEMOGLOBIN 9.9 g/dL (12.0-16.0); LYMPHOCYTES # (AUTO) 1.7 K/uL (1.0-4.8); MEAN CORPUSCULAR HEMOGLOBIN 22.9 pg (26.0-34.0); MEAN CORPUSCULAR HGB CONC 31.2 G/dL (31.0-37.0); MEAN CORPUSCULAR VOLUME 73 fL (80-100); MONOCYTES # (AUTO) 0.6 K/uL (0.1-1.0); MONOCYTES % (AUTO) 8.2 % (2.0-9.0); NEUTROPHILS # (AUTO) 5.3 K/uL (1.8-7.7); NEUTROPHILS % (AUTO) 69.4 % (40.0-70.0); PLATELET COUNT (AUTO) 520 K/uL (150-450); RED BLOOD CELL COUNT(AUTO) 4.31 MIL/uL (4.00-5.20); RED CELL DISTRIBUTION WIDTH 16.9 % (11.5-14.5)
[2020-02-21] MEDS ORDERED: ALBUTEROL SULFATE HFA 90 MCG/PUFF 8 GM INHALER IH ONE (00:30)
[2020-02-21 00:38] LABS: ALANINE AMINOTRANSFERASE 23 U/L (12-78); ALKALINE PHOSPHATASE 79 U/L (46-116); ANION GAP 11 mmol/L (8-16); ASPARTATE AMINOTRANSFERASE 22 U/L (15-37); BILIRUBIN,TOTAL 0.5 mg/dL (0.1-1.0); CALCIUM, TOTAL 8.9 mg/dL (8.8-10.5); CARBON DIOXIDE 27 mmol/L (22-29); CHLORIDE 105 mmol/L (98-107); CREATININE 1.01 mg/dL (0.60-1.30); GLOMERULAR FILTR. RATE CALC > 60 mL/min (>60); GLUCOSE,RANDOM 107 mg/dL (70-110); HCG,QUANTITATIVE < 1 mIU/mL (0-6); SODIUM SERUM 143 mmol/L (136-145); TOTAL PROTEIN, SERUM 8.3 g/dL (6.4-8.2); UREA NITROGEN, BLOOD 11 mg/dL (7-18)
[2020-02-21] MEDS ORDERED: MAGNESIUM SULFATE 2 GM in DEXTROSE 5%-WATER 100 ML IV ONE (01:15)
[2020-02-21] MEDS ORDERED: MethylPREDNISolone SOD SUCC 125 MG/2 ML VIAL IVP ONE (01:15)
[2020-02-21] MEDS ORDERED: IPRATROPIUM BROMIDE 0.5 MG/2.5 ML NEB SOLUTION NEB ONE (01:45)
[2020-02-21] MEDS ORDERED: ALBUTEROL SULFATE 2.5 MG/0.5 ML NEB SOLUTION NEB ONE (01:45)
[2020-02-21] MEDS ORDERED: SODIUM CHLORIDE 0.9% 500 ML IV ONE (02:00)
[2020-02-21 03:25] VITALS: BP 130/88
== END 2020-02-21 03:24 | disposition left against medical advice (07) ==
LOC: EMS 23:29
DX: J45.901 Unspecified asthma with (acute) exacerbation (principal); D64.9 Anemia, unspecified; F15.90 Other stimulant use, unspecified, uncomplicated; F32.9 Major depressive disorder, single episode, unspecified; Z88.6 Allergy status to analgesic agent; Z79.899 Other long term (current) drug therapy
CPT/HCPCS: 36415; 71045; 80053; 83880; 84484; 84702; 85025; 93005; 94640; 96365; 96375; 99285; J2930; J3475; J7040; J7060; 90471; J3535

== ENCOUNTER 2020-03-05 19:19 | Emergency (ER) | payer SELFPAY ==
[~2020-03-05] VITALS: Ht 172.7 cm; Wt 95.5 kg
[2020-03-05 19:26] VITALS: BP 142/70
== END 2020-03-05 20:51 | disposition left against medical advice (07) ==
LOC: EMS 19:19
DX: R53.1 Weakness (principal)

== ENCOUNTER 2020-10-08 01:28 | Emergency (ER) | payer OTHER, SELFPAY ==
[~2020-10-08] VITALS: Ht 175.3 cm; Wt 90.9 kg
[2020-10-08] MEDS ORDERED: IPRATROPIUM BROMIDE 0.5 MG/2.5 ML NEB SOLUTION NEB ONE (02:00)
[2020-10-08] MEDS ORDERED: ALBUTEROL SULFATE 5 MG/ML 20 ML NEB SOLN [BULK] NEB ONE (02:00)
[2020-10-08] MEDS ORDERED: MethylPREDNISolone SOD SUCC 125 MG/2 ML VIAL IVP ONE (02:00)
[2020-10-08] MEDS ORDERED: MAGNESIUM SULFATE 2 GM/WATER 50 ML IV ONE (02:00)
[2020-10-08 04:13] VITALS: BP 118/76
== END 2020-10-08 05:03 | disposition home or self-care (01) ==
LOC: EMS 01:29
DX: J45.901 Unspecified asthma with (acute) exacerbation (principal); F15.90 Other stimulant use, unspecified, uncomplicated; Z86.2 Personal history of diseases of the blood and blood-forming organs and certain disorders involving the immune mechanism; Z79.899 Other long term (current) drug therapy; Z88.6 Allergy status to analgesic agent
CPT/HCPCS: 94640; 96365; 96366; 96375; 99291; J2930; J3475; J7611

== ENCOUNTER 2020-11-26 10:54 | Emergency (ER) | payer OTHER ==
[~2020-11-26] VITALS: Ht 175.3 cm; Wt 97.7 kg
[2020-11-26 12:00] VITALS: BP 118/76
[2020-11-26] MEDS ORDERED: ALBUTEROL SULFATE HFA 90 MCG/PUFF 8 GM INHALER IH ONE (12:00)
== END 2020-11-26 12:40 | disposition left against medical advice (07) ==
LOC: EMS 10:54
DX: J45.909 Unspecified asthma, uncomplicated (principal); Z76.0 Encounter for issue of repeat prescription
CPT/HCPCS: 94640; 99283; J3535

== ENCOUNTER 2020-12-02 12:44 | Emergency (ER) | payer OTHER ==
[~2020-12-02] VITALS: Ht 175.3 cm; Wt 79.5 kg
[~2020-12-02 12:44] MED LIST changes: -ARIP2 PO; +ARIP2TAB27 PO
[2020-12-02] MEDS ORDERED: DEXAMETHASONE SOD PHOS 4 MG/ML 5 ML VIAL IM ONE (13:30)
[2020-12-02] MEDS ORDERED: ALBUTEROL SULFATE HFA 90 MCG/PUFF 8 GM INHALER IH ONE (13:30)
[2020-12-02 13:44] VITALS: BP 106/55
== END 2020-12-02 13:51 | disposition home or self-care (01) ==
LOC: EMS 12:44
DX: J45.909 Unspecified asthma, uncomplicated (principal); F32.9 Major depressive disorder, single episode, unspecified; Z88.8 Allergy status to other drugs, medicaments and biological substances
CPT/HCPCS: 94640; 96372; 99283; J1100; J3535

== ENCOUNTER 2020-12-07 18:26 | Emergency (ER) | payer OTHER ==
[~2020-12-07] VITALS: Ht 175.3 cm; Wt 84.1 kg
[2020-12-07 19:11] VITALS: BP 113/64
[2020-12-07] MEDS ORDERED: ALBUTEROL SULFATE HFA 90 MCG/PUFF 8 GM INHALER IH ONE (19:45)
== END 2020-12-07 19:38 | disposition home or self-care (01) ==
LOC: EMS 18:29
DX: J45.909 Unspecified asthma, uncomplicated (principal)
CPT/HCPCS: 94640; 99283; J3535

== ENCOUNTER 2020-12-18 03:30 | Emergency (ER) | payer OTHER ==
[~2020-12-18] VITALS: Ht 175.3 cm; Wt 86.4 kg
[2020-12-18 04:45] VITALS: BP 118/80
== END 2020-12-18 05:03 | disposition home or self-care (01) ==
LOC: EMS 03:30
DX: J45.909 Unspecified asthma, uncomplicated (principal); F32.9 Major depressive disorder, single episode, unspecified; F15.90 Other stimulant use, unspecified, uncomplicated
CPT/HCPCS: 99281; 99283

== ENCOUNTER 2021-03-07 08:32 | Emergency (ER) | payer OTHER ==
[~2021-03-07] VITALS: Ht 175.3 cm; Wt 95.4 kg
[2021-03-07 10:02] VITALS: BP 142/80
[2021-03-07] MEDS ORDERED: ALBUTEROL SULFATE HFA 90 MCG/PUFF 8 GM INHALER IH ONE (10:15)
== END 2021-03-07 10:36 | disposition home or self-care (01) ==
LOC: EMS 08:35
DX: J45.901 Unspecified asthma with (acute) exacerbation (principal); F32.9 Major depressive disorder, single episode, unspecified; F19.90 Other psychoactive substance use, unspecified, uncomplicated; Z88.6 Allergy status to analgesic agent
CPT/HCPCS: 94640; 99283; J3535

== ENCOUNTER 2021-03-27 16:36 | Emergency (ER) | payer OTHER ==
[~2021-03-27] VITALS: Ht 172.7 cm; Wt 100.0 kg
[2021-03-27 17:07] VITALS: BP 112/54
== END 2021-03-27 17:30 | disposition left against medical advice (07) ==
LOC: EMS 16:37
DX: R06.02 Shortness of breath (principal); Z53.21 Procedure and treatment not carried out due to patient leaving prior to being seen by health care provider

== ENCOUNTER 2021-04-01 14:16 | Emergency (ER) | payer OTHER ==
[~2021-04-01] VITALS: Ht 175.3 cm; Wt 95.5 kg
[2021-04-01] MEDS ORDERED: ALBUTEROL SULFATE HFA 90 MCG/PUFF 8 GM INHALER IH ONE (15:15)
[2021-04-01 15:54] VITALS: BP 148/68
== END 2021-04-01 16:00 | disposition home or self-care (01) ==
LOC: EMS 14:42
DX: J45.901 Unspecified asthma with (acute) exacerbation (principal); Z76.0 Encounter for issue of repeat prescription; F32.9 Major depressive disorder, single episode, unspecified
CPT/HCPCS: 94640; 99283; J3535

== ENCOUNTER 2021-05-19 09:00 | Emergency (ER) | payer OTHER ==
[~2021-05-19] VITALS: Ht 172.7 cm; Wt 90.9 kg
[2021-05-19 10:15] VITALS: BP 119/69
[2021-05-19] MEDS ORDERED: DiphenhydrAMINE HCL 50 MG/ML VIAL IM ONE (10:15)
[2021-05-19] MEDS ORDERED: HALOPERIDOL LACTATE 5 MG/ML VIAL IM ONE (10:15)
[2021-05-19] MEDS ORDERED: ALBUTEROL SULFATE HFA 90 MCG/PUFF 8 GM INHALER IH ONE (10:15)
[2021-05-19] MEDS ORDERED: PredniSONE 20 MG TABLET PO ONE (10:15)
[2021-05-19] MEDS ORDERED: LORazepam 2 MG/ML VIAL IM ONE (10:15)
== END 2021-05-19 10:15 | disposition home or self-care (01) ==
LOC: EMS 09:05
DX: J45.901 Unspecified asthma with (acute) exacerbation (principal); F17.210 Nicotine dependence, cigarettes, uncomplicated; F15.90 Other stimulant use, unspecified, uncomplicated; Z88.6 Allergy status to analgesic agent; Z79.899 Other long term (current) drug therapy
CPT/HCPCS: 36415; 94640; 99283; J7512; J3535

== ENCOUNTER 2021-09-27 14:58 | Emergency (ER) | payer OTHER ==
[~2021-09-27] VITALS: Ht 172.7 cm; Wt 97.7 kg
[2021-09-27 15:00] VITALS: BP 108/71
[2021-09-27] MEDS ORDERED: PERMETHRIN 5% 60 GM CREAM TP ONE (16:00)
[2021-09-27] MEDS ORDERED: TRI2515C TP (16:12)
== END 2021-09-27 16:30 | disposition home or self-care (01) ==
LOC: EMS 15:00
DX: R21 Rash and other nonspecific skin eruption (principal); J45.909 Unspecified asthma, uncomplicated; Z59.00 Homelessness unspecified; Z88.6 Allergy status to analgesic agent
CPT/HCPCS: 99282; 99283

== ENCOUNTER 2023-08-16 14:21 | Emergency (ER) | payer OTHER ==
[~2023-08-16] VITALS: Ht 167.6 cm; Wt 115.9 kg
[~2023-08-16 14:21] MED LIST changes: +ALBU2.5V39 NEB; -AUD NEB; +TRI2515C TP
[2023-08-16 14:31] VITALS: TEMP 98.4
[2023-08-16 14:55] LABS: BASOPHILS % (AUTO) 1.2 % (0.0-2.0); EOSINOPHILS % (AUTO) 7.7 % (1.0-6.0); HEMATOCRIT 36.6 % (36-46); HEMOGLOBIN 11.8 g/dL (12.0-16.0); LYMPHOCYTES # (AUTO) 1.8 K/uL (1.0-4.8); LYMPHOCYTES % (AUTO) 24.4 % (22.0-44.0); MEAN CORPUSCULAR HEMOGLOBIN 26.6 pg (26.0-34.0); MEAN CORPUSCULAR HGB CONC 32.2 G/dL (31.0-37.0); MEAN CORPUSCULAR VOLUME 83 fL (80-100); MONOCYTES # (AUTO) 0.6 K/uL (0.1-1.0); MONOCYTES % (AUTO) 7.8 % (2.0-9.0); NEUTROPHILS # (AUTO) 4.3 K/uL (1.8-7.7); NEUTROPHILS % (AUTO) 58.9 % (40.0-70.0); PLATELET COUNT (AUTO) 393 K/uL (150-450); RED BLOOD CELL COUNT(AUTO) 4.44 MIL/uL (4.00-5.20); RED CELL DISTRIBUTION WIDTH 13.5 % (11.5-14.5); WHITE BLOOD COUNT (AUTO) 7.3 K/uL (4.5-11.0)
[2023-08-16] MEDS ORDERED: ACETAMINOPHEN 500 MG TABLET PO ONE (15:00)
[2023-08-16] MEDS ORDERED: GuaiFENesin/D-METHORPHAN [SUGAR-FREE] 200-20MG/10 ML SYRUP UDCUP PO ONE (15:00)
[2023-08-16] MEDS ORDERED: ALBUTEROL SULFATE HFA 90 MCG/PUFF 8 GM INHALER IH ONE (15:00)
[2023-08-16] MEDS ORDERED: IPRATROPIUM BROMIDE 0.5 MG/2.5 ML NEB SOLUTION NEB ONE (15:00)
[2023-08-16] MEDS ORDERED: MethylPREDNISolone SOD SUCC 125 MG/2 ML VIAL IM ONE (15:00)
[2023-08-16 15:03] LABS: ANION GAP 9 mmol/L (8-16); CALCIUM, TOTAL 9.2 mg/dL (8.8-10.5); CARBON DIOXIDE 26 mmol/L (22-29); CHLORIDE 103 mmol/L (98-107); CREATININE 0.88 mg/dL (0.60-1.30); GLOMERULAR FILTR. RATE CALC > 60 mL/min (>60); GLUCOSE,RANDOM 145 mg/dL (70-110); SODIUM SERUM 138 mmol/L (136-145); UREA NITROGEN, BLOOD 11 mg/dL (7-18)
[2023-08-16 15:09] LABS: ALANINE AMINOTRANSFERASE 17 U/L (12-78); ALBUMIN 3.8 g/dL (3.4-5.0); ALKALINE PHOSPHATASE 104 U/L (46-116); ASPARTATE AMINOTRANSFERASE 21 U/L (15-37); BILIRUBIN,TOTAL 0.4 mg/dL (0.1-1.0)
[2023-08-16 15:12] LABS: TROPONIN I-HIGH SENSITIVITY 7 ng/L (<51)
[2023-08-16 15:13] LABS: B-TYPE NATRIURETIC PEPTIDE 6 pg/mL (0-100)
[2023-08-16 15:23] VITALS: PULSE 111; RESP 16; O2SAT 95
[2023-08-16 15:29] VITALS: PULSE 107; RESP 16; O2SAT 95
[2023-08-16 15:31] VITALS: PULSE 111; RESP 16; O2SAT 95
[2023-08-16 15:38] VITALS: PULSE 112; RESP 17; O2SAT 100
[2023-08-16 15:40] VITALS: BP 136/91; PULSE 117; RESP 17
[2023-08-16] MEDS ORDERED: PRED-554 PO (15:44)
[2023-08-16] MEDS ORDERED: ALBU2.5V39 NEB (15:44)
[2023-08-16] MEDS ORDERED: ALBU18HF12 IH (15:44)
== END 2023-08-16 16:17 | disposition home or self-care (01) ==
LOC: EMS 14:22
DX: J45.901 Unspecified asthma with (acute) exacerbation (principal); R06.00 Dyspnea, unspecified; Z88.6 Allergy status to analgesic agent
CPT/HCPCS: 99285; 71045; 80053; 83880; 84484; 85025; 36415; 94640; 93005; 96372; J2930; J3535

== ENCOUNTER 2024-03-23 13:22 | Emergency (ER) | payer OTHER ==
[~2024-03-23] VITALS: Ht 172.7 cm; Wt 100.0 kg
[~2024-03-23 13:22] MED LIST changes: +ALBU18HF12 IH; +PRED-554 PO
[2024-03-23 13:31] VITALS: TEMP 98.2
[2024-03-23] MEDS: IPRATROPIUM BROMIDE 0.5 MG/2.5 ML NEB SOLUTION NEB ONE (14:27)
[2024-03-23] MEDS: MethylPREDNISolone SOD SUCC 125 MG/2 ML VIAL IVP ONE (14:28)
[2024-03-23] MEDS: ALBUTEROL SULFATE 2.5 MG/0.5 ML 5 ML NEB SOLUTION NEB ONE (14:29)
[2024-03-23 14:30] VITALS: PULSE 118; PULSE 125; RESP 20; RESP 25; O2SAT 100
[2024-03-23] MEDS: MAGNESIUM SULFATE 2 GM/WATER 50 ML IV ONE (14:44)
[2024-03-23 15:52] VITALS: BP 129/81; PULSE 107; RESP 18
[2024-03-23] MEDS ORDERED: ALBU18HF12 IH (16:34)
[2024-03-23] MEDS ORDERED: ALBU2.5V39 NEB (16:34)
[2024-03-23] MEDS ORDERED: METH4TAB3 PO (16:34)
== END 2024-03-23 17:36 | disposition home or self-care (01) ==
LOC: EMS 13:28
DX: J45.901 Unspecified asthma with (acute) exacerbation (principal); Z88.6 Allergy status to analgesic agent
CPT/HCPCS: 99284; 96365; 71045; 96375; 94644; J2919; J3475

== ENCOUNTER 2024-08-23 07:27 | Emergency (ER) | payer OTHER ==
[~2024-08-23] VITALS: Ht 170.2 cm; Wt 90.9 kg
[~2024-08-23 07:27] MED LIST changes: -ALBU8.5H8 IH; -ARIP2TAB27 PO; -BECL10.62 IH; +METH4TAB3 PO; -PRED-554 PO; -TRI2515C TP
[2024-08-23 07:31] VITALS: BP 115/65; PULSE 122; RESP 22; TEMP 98.9; O2SAT 97
[2024-08-23 08:15] LABS: EOSINOPHILS % (AUTO) 13.9 % (1.0-6.0); HEMATOCRIT 34.2 % (36-46); HEMOGLOBIN 11.2 g/dL (12.0-16.0); LYMPHOCYTES % (AUTO) 18.4 % (22.0-44.0); MEAN CORPUSCULAR HEMOGLOBIN 27.6 pg (26.0-34.0); MEAN CORPUSCULAR HGB CONC 32.8 G/dL (31.0-37.0); MEAN CORPUSCULAR VOLUME 84 fL (80-100); MONOCYTES # (AUTO) 0.4 K/uL (0.1-1.0); MONOCYTES % (AUTO) 7.4 % (2.0-9.0); NEUTROPHILS # (AUTO) 3.3 K/uL (1.8-7.7); NEUTROPHILS % (AUTO) 59.3 % (40.0-70.0); PLATELET COUNT (AUTO) 354 K/uL (150-450); RED BLOOD CELL COUNT(AUTO) 4.06 MIL/uL (4.00-5.20); RED CELL DISTRIBUTION WIDTH 12.9 % (11.5-14.5); WHITE BLOOD COUNT (AUTO) 5.6 K/uL (4.5-11.0)
[2024-08-23 08:25] LABS: ANION GAP 4 mmol/L (8-16); CALCIUM, TOTAL 8.3 mg/dL (8.8-10.5); CARBON DIOXIDE 31 mmol/L (22-29); CHLORIDE 106 mmol/L (98-107); CREATININE 0.72 mg/dL (0.60-1.30); GLOMERULAR FILTR. RATE CALC > 60 mL/min (>60); GLUCOSE,RANDOM 128 mg/dL (70-110); POTASSIUM 3.8 mmol/L (3.5-5.1); SODIUM SERUM 141 mmol/L (136-145); UREA NITROGEN, BLOOD 6 mg/dL (7-18)
[2024-08-23 08:32] LABS: TROPONIN I-HIGH SENSITIVITY 5 ng/L (<51)
[2024-08-23 08:46] LABS: B-TYPE NATRIURETIC PEPTIDE 13 pg/mL (0-100)
== END 2024-08-23 11:35 | disposition left against medical advice (07) ==
LOC: EMS 07:30
DX: R06.00 Dyspnea, unspecified (principal); J45.909 Unspecified asthma, uncomplicated; Z88.6 Allergy status to analgesic agent
CPT/HCPCS: 71045; 80048; 83880; 84484; 85025; 99284; 36415-L1; 36415-TC

== ENCOUNTER 2024-12-27 02:56 | Emergency (ER) | payer OTHER ==
[~2024-12-27] VITALS: Ht 167.6 cm; Wt 75.0 kg
[~2024-12-27 02:56] MED LIST changes: -METH4TAB3 PO
[2024-12-27 03:01] VITALS: BP 138/94; TEMP 97.9; O2SAT 100
[2024-12-27 03:38] VITALS: PULSE 111; RESP 19; O2SAT 100
[2024-12-27 04:15] VITALS: PULSE 97; RESP 16; O2SAT 95
[2024-12-27] MEDS: IPRATROPIUM BROMIDE 0.5 MG/2.5 ML NEB SOLUTION NEB ONE (04:20)
[2024-12-27] MEDS: ALBUTEROL SULFATE 2.5 MG/0.5 ML NEB SOLUTION NEB ONE (04:20)
[2024-12-27 04:21] VITALS: PULSE 96; RESP 16; O2SAT 95
[2024-12-27] MEDS ORDERED: PRED-554 PO (04:34)
[2024-12-27] MEDS ORDERED: ALBU2.5V39 NEB (04:34)
[2024-12-27] MEDS: PredniSONE 20 MG TABLET PO ONE (04:39)
[2024-12-28] MEDS ORDERED: PRED-554 PO (11:47)
[2024-12-30] MEDS ORDERED: OMEP20CA12 PO (18:30)
[2024-12-30] MEDS ORDERED: ALBU18HF12 IH (18:30)
== END 2024-12-27 05:22 | disposition home or self-care (01) ==
LOC: EMS 02:58
DX: J45.901 Unspecified asthma with (acute) exacerbation (principal); Z98.890 Other specified postprocedural states; Z88.6 Allergy status to analgesic agent; Z79.899 Other long term (current) drug therapy
CPT/HCPCS: 94060; 94640; 99283

== ENCOUNTER 2025-01-13 09:00 | Emergency (ER) | payer OTHER ==
[~2025-01-13] VITALS: Ht 170.2 cm; Wt 113.6 kg
[~2025-01-13 09:00] MED LIST changes: +OMEP20CA12 PO; +PRED-554 PO
[2025-01-13] MEDS: IPRATROPIUM BROMIDE 0.5 MG/2.5 ML NEB SOLUTION NEB ONE ×2 (09:43→12:15)
[2025-01-13] MEDS: ALBUTEROL SULFATE 2.5 MG/0.5 ML NEB SOLUTION NEB ONE ×2 (09:43→12:15)
[2025-01-13 09:44] VITALS: PULSE 101; RESP 16; O2SAT 100
[2025-01-13 09:45] VITALS: PULSE 101; RESP 16; O2SAT 100
[2025-01-13] MEDS: MethylPREDNISolone SOD SUCC 125 MG/2 ML VIAL IVP ONE (09:47)
[2025-01-13 09:53] LABS: ANION GAP 6 mmol/L (8-16); CALCIUM, TOTAL 9.2 mg/dL (8.8-10.5); CARBON DIOXIDE 29 mmol/L (22-29); CHLORIDE 103 mmol/L (98-107); CREATININE 0.74 mg/dL (0.60-1.30); GLOMERULAR FILTR. RATE CALC > 60 mL/min (>60); GLUCOSE,RANDOM 90 mg/dL (70-110); POTASSIUM 3.7 mmol/L (3.5-5.1); SODIUM SERUM 138 mmol/L (136-145); UREA NITROGEN, BLOOD 6 mg/dL (7-18)
[2025-01-13 10:11] VITALS: TEMP 98.8
[2025-01-13 10:29] LABS: BASOPHILS % (AUTO) 0.8 % (0.0-2.0); EOSINOPHILS % (AUTO) 0.3 % (1.0-6.0); HEMATOCRIT 39.3 % (36-46); HEMOGLOBIN 12.5 g/dL (12.0-16.0); LYMPHOCYTES # (AUTO) 1.4 K/uL (1.0-4.8); LYMPHOCYTES % (AUTO) 16.9 % (22.0-44.0); MEAN CORPUSCULAR HGB CONC 31.8 G/dL (31.0-37.0); MEAN CORPUSCULAR VOLUME 82 fL (80-100); MONOCYTES # (AUTO) 0.6 K/uL (0.1-1.0); MONOCYTES % (AUTO) 7.2 % (2.0-9.0); NEUTROPHILS # (AUTO) 6.4 K/uL (1.8-7.7); NEUTROPHILS % (AUTO) 74.8 % (40.0-70.0); PLATELET COUNT (AUTO) 459 K/uL (150-450); RED BLOOD CELL COUNT(AUTO) 4.82 MIL/uL (4.00-5.20); RED CELL DISTRIBUTION WIDTH 14.7 % (11.5-14.5); WHITE BLOOD COUNT (AUTO) 8.5 K/uL (4.5-11.0)
[2025-01-13 11:09] VITALS: PULSE 100; RESP 18; O2SAT 99
[2025-01-13] MEDS: ALBUTEROL SULFATE HFA 90 MCG/PUFF 8 GM INHALER IH ONE (11:09)
[2025-01-13 12:00] VITALS: BP 115/69; O2SAT 99
[2025-01-13 12:17] VITALS: PULSE 106; RESP 18; O2SAT 100
[2025-01-13] MEDS: LORazepam 1 MG TABLET PO ONE (12:36)
[2025-01-13] MEDS ORDERED: ALBU18HF12 IH (12:56)
== END 2025-01-13 14:35 | disposition home or self-care (01) ==
LOC: EMS 09:01
DX: J45.901 Unspecified asthma with (acute) exacerbation (principal); R06.02 Shortness of breath; Z79.52 Long term (current) use of systemic steroids; Z79.899 Other long term (current) drug therapy; Z88.6 Allergy status to analgesic agent
CPT/HCPCS: 99285; 96374; 71045; 80048; 85025; 36415; 94640; J2919; J3535; J7613

== ENCOUNTER 2025-02-15 16:23 | Emergency (ER) | payer OTHER ==
[~2025-02-15] VITALS: Ht 170.2 cm; Wt 119.3 kg
[2025-02-15 16:31] VITALS: TEMP 98.6
[2025-02-15] MEDS ORDERED: ALBU0.8311 NEB (16:56)
[2025-02-15] MEDS: IPRATROPIUM BROMIDE 0.5 MG/2.5 ML NEB SOLUTION NEB ONE ×2 (16:57→18:20)
[2025-02-15] MEDS: ALBUTEROL SULFATE 2.5 MG/0.5 ML NEB SOLUTION NEB ONE (16:57)
[2025-02-15 16:58] VITALS: PULSE 105; RESP 18; O2SAT 100
[2025-02-15 17:01] VITALS: PULSE 105; RESP 18; O2SAT 100
[2025-02-15 17:06] LABS: PLATELET COUNT (AUTO) 394 K/uL (150-450); RED BLOOD CELL COUNT(AUTO) 4.47 MIL/uL (4.00-5.20); RED CELL DISTRIBUTION WIDTH 15.1 % (11.5-14.5); WHITE BLOOD COUNT (AUTO) 7.8 K/uL (4.5-11.0)
[2025-02-15 17:27] LABS: CALCIUM, TOTAL 8.5 mg/dL (8.8-10.5); CREATININE 0.90 mg/dL (0.60-1.30); GLOMERULAR FILTR. RATE CALC > 60 mL/min (>60); GLUCOSE,RANDOM 128 mg/dL (70-110); SODIUM SERUM 138 mmol/L (136-145); UREA NITROGEN, BLOOD 7 mg/dL (7-18)
[2025-02-15 18:20] VITALS: PULSE 105; RESP 18; RESP 20; O2SAT 100
[2025-02-15] MEDS: ALBUTEROL SULFATE 2.5 MG/0.5 ML 5 ML NEB SOLUTION NEB ONE (18:20)
[2025-02-15 18:39] VITALS: BP 111/74; PULSE 80; RESP 18; O2SAT 95
[2025-02-15] MEDS: ALBUTEROL SULFATE HFA 90 MCG/PUFF 8 GM INHALER IH ONE (18:45)
[2025-02-15] MEDS ORDERED: IPRA3AMP24 NEB (19:00)
[2025-02-15] MEDS ORDERED: PRED-554 PO (19:00)
[2025-02-15] MEDS ORDERED: ALBU18HF12 IH (19:00)
[2025-02-19] MEDS ORDERED: ALBU18HF12 IH (01:32)
[2025-02-19] MEDS ORDERED: IPRA3AMP24 NEB (01:32)
[2025-02-19] MEDS ORDERED: ALBU0.8311 NEB (01:32)
== END 2025-02-15 19:32 | disposition home or self-care (01) ==
LOC: EMS 16:31
DX: J45.901 Unspecified asthma with (acute) exacerbation (principal); Z88.6 Allergy status to analgesic agent; Z79.899 Other long term (current) drug therapy
CPT/HCPCS: 99285; 71045; 80048; 85025; 36415; 94644; J7512; J3535; 94060; 94640

== ENCOUNTER → 2025-02-19 | Emergency (ER) | payer OTHER ==
[~2025-02-19] VITALS: Ht 172.7 cm; Wt 90.0 kg
[~2025-02-19] MED LIST changes: +0.9% SODIUM CHLORIDE 5 ML NEB SOLUTION NEB ONE; +ALBU0.8311 NEB; -ALBU2.5V39 NEB; +IPRA3AMP24 NEB
[2025-02-19 00:19] VITALS: TEMP 98.8
[2025-02-19] MEDS: LEVALBUTEROL 1.25 MG/0.5 ML NEB SOLUTION NEB ONE (01:32)
[2025-02-19] MEDS: IPRATROPIUM BROMIDE 0.5 MG/2.5 ML NEB SOLUTION NEB ONE (01:33)
[2025-02-19 01:34] VITALS: PULSE 97; RESP 18; O2SAT 100
[2025-02-19 01:35] VITALS: PULSE 97; RESP 18; O2SAT 100
[2025-02-19] MEDS: ALBUTEROL SULFATE HFA 90 MCG/PUFF 8 GM INHALER IH ONE (02:04)
[2025-02-19 02:09] VITALS: BP 23/71; O2SAT 99
[2025-02-19 02:10] VITALS: PULSE 90; RESP 18; O2SAT 99
== END | disposition still patient (30) ==
LOC: EMS 00:14
DX: J45.901 Unspecified asthma with (acute) exacerbation (principal); Z79.899 Other long term (current) drug therapy; Z79.52 Long term (current) use of systemic steroids; Z88.6 Allergy status to analgesic agent; Z98.890 Other specified postprocedural states
CPT/HCPCS: 99284; 96374; 94640; 93005; J2919; J3535; 94644

== ENCOUNTER 2025-03-13 02:27 | Emergency (ER) | payer OTHER ==
[~2025-03-13] VITALS: Ht 172.7 cm; Wt 90.0 kg
[~2025-03-13 02:27] MED LIST changes: -0.9% SODIUM CHLORIDE 5 ML NEB SOLUTION NEB ONE
[2025-03-13 02:35] VITALS: TEMP 98.4
[2025-03-13 03:46] VITALS: PULSE 108; RESP 26; O2SAT 92
[2025-03-13] MEDS: ALBUTEROL SULFATE 2.5 MG/0.5 ML NEB SOLUTION NEB ONE (03:46)
[2025-03-13] MEDS: IPRATROPIUM BROMIDE 0.5 MG/2.5 ML NEB SOLUTION NEB ONE ×2 (03:46→03:58)
[2025-03-13] MEDS ORDERED: 0.9% SODIUM CHLORIDE 5 ML NEB SOLUTION NEB ONE (03:54)
[2025-03-13 03:56] VITALS: PULSE 84; RESP 26; O2SAT 100
[2025-03-13 03:58] VITALS: PULSE 91; RESP 26; O2SAT 100
[2025-03-13] MEDS: ALBUTEROL SULFATE 2.5 MG/0.5 ML 5 ML NEB SOLUTION NEB ONE (03:58)
[2025-03-13 04:09] VITALS: BP 102/82
[2025-03-13] MEDS: EPINEPHrine 1:1,000 [1 MG/ML] VIAL IM ONE (04:09)
[2025-03-13 04:58] VITALS: PULSE 112; RESP 24; O2SAT 100
[2025-03-13 05:01] LABS: PLATELET COUNT (AUTO) 376 K/uL (150-450); RED BLOOD CELL COUNT(AUTO) 4.48 MIL/uL (4.00-5.20); RED CELL DISTRIBUTION WIDTH 15.4 % (11.5-14.5); WHITE BLOOD COUNT (AUTO) 9.0 K/uL (4.5-11.0)
[2025-03-13 05:10] LABS: CALCIUM, TOTAL 8.6 mg/dL (8.8-10.5); CREATININE 0.90 mg/dL (0.60-1.30); GLOMERULAR FILTR. RATE CALC > 60 mL/min (>60); GLUCOSE,RANDOM 142 mg/dL (70-110); SODIUM SERUM 140 mmol/L (136-145); UREA NITROGEN, BLOOD 13 mg/dL (7-18)
[2025-03-13] MEDS ORDERED: ALBUTEROL SULFATE HFA 90 MCG/PUFF 8 GM INHALER IH ONE (05:15)
[2025-03-13 05:20] LABS: TROPONIN I-HIGH SENSITIVITY 7 ng/L (<51)
== END 2025-03-13 06:30 | disposition left against medical advice (07) ==
LOC: EMS 02:27
DX: R06.02 Shortness of breath (principal); R06.00 Dyspnea, unspecified; J45.909 Unspecified asthma, uncomplicated; Z88.6 Allergy status to analgesic agent; Z79.52 Long term (current) use of systemic steroids; Z98.890 Other specified postprocedural states; Z79.899 Other long term (current) drug therapy
CPT/HCPCS: 99285; 71045; 80048; 83880; 84484; 85025; 36415; 94640; 93005; 96372; J0169; J7512; J3535; 94644; 94760; J7613

== ENCOUNTER 2025-03-13 17:12 | Emergency (ER) | payer OTHER ==
[2025-03-12 19:50] VITALS: PULSE 116; RESP 27; O2SAT 97
[~2025-03-13] VITALS: Ht 170.2 cm; Wt 90.9 kg
[2025-03-13 17:35] VITALS: BP 120/98; TEMP 98.3; O2SAT 95
[2025-03-13] MEDS ORDERED: 0.9% SODIUM CHLORIDE 5 ML NEB SOLUTION NEB ONE (18:39)
[2025-03-13] MEDS: ALBUTEROL SULFATE 2.5 MG/0.5 ML 5 ML NEB SOLUTION NEB ONE (18:46)
[2025-03-13] MEDS: IPRATROPIUM BROMIDE 0.5 MG/2.5 ML NEB SOLUTION NEB ONE (18:49)
[2025-03-13 18:50] VITALS: PULSE 116; RESP 27; O2SAT 97
[2025-03-13] MEDS: SODIUM CHLORIDE 0.9% 1,000 ML IV ONE (19:45)
[2025-03-13 20:45] VITALS: PULSE 116; RESP 27; O2SAT 97
== END 2025-03-13 22:05 | disposition left against medical advice (07) ==
LOC: EMS 17:12 → CANBEDREQ 03-14 16:36
DX: J45.901 Unspecified asthma with (acute) exacerbation (principal); Z88.6 Allergy status to analgesic agent; Z79.52 Long term (current) use of systemic steroids; Z79.899 Other long term (current) drug therapy
CPT/HCPCS: 99283; 96374; 84703; 36415; 94640; J2919; 94644

== ENCOUNTER 2025-03-30 03:45 | Emergency (ER) | payer OTHER ==
[~2025-03-30] VITALS: Ht 170.2 cm; Wt 90.0 kg
[2025-03-30 03:57] VITALS: TEMP 98.3
[2025-03-30 04:01] VITALS: BP 106/76; PULSE 116; RESP 20; O2SAT 100
[2025-03-30] MEDS ORDERED: ALBU0.8311 NEB (05:43)
[2025-03-30] MEDS ORDERED: PRED-554 PO (05:43)
== END 2025-03-30 06:27 | disposition home or self-care (01) ==
LOC: EMS 03:46
DX: J45.909 Unspecified asthma, uncomplicated (principal); Z98.890 Other specified postprocedural states; Z88.6 Allergy status to analgesic agent; Z79.52 Long term (current) use of systemic steroids; Z79.899 Other long term (current) drug therapy
CPT/HCPCS: 99283; J7512

== ENCOUNTER 2025-08-01 12:07 | Emergency (ER) | payer OTHER ==
[~2025-08-01] VITALS: Ht 170.2 cm; Wt 81.8 kg
[~2025-08-01 12:07] MED LIST changes: -ALBU0.8311 NEB; +BUDE0.5A NEB; +MONT-35 PO; -PRED-554 PO; +PRED-729 PO
[2025-08-01 12:25] VITALS: BP 113/64; PULSE 119; RESP 20; TEMP 97.8; O2SAT 97
== END 2025-08-01 12:55 | disposition left against medical advice (07) ==
LOC: EMS 12:30
DX: R06.03 Acute respiratory distress (principal); J45.909 Unspecified asthma, uncomplicated; Z79.51 Long term (current) use of inhaled steroids; Z79.52 Long term (current) use of systemic steroids; Z79.899 Other long term (current) drug therapy; Z88.6 Allergy status to analgesic agent; Z98.890 Other specified postprocedural states
CPT/HCPCS: 99283; Z7502